=== PATIENT | male | born 1940 | race African-American/Black ===

== ENCOUNTER 2019-04-09 20:20 | Emergency (ER) | payer MEDICARE, MEDICAID ==
[~2019-04-09] VITALS: Ht 177.8 cm; Wt 86.0 kg
[2019-04-09 20:26] VITALS: BP 153/88
[2019-04-09] MEDS ORDERED: METF500T17 PO (20:49)
--- NOTE | 2019-04-09 20:49 | NUR ---
BIB EMS, per [facility] pt fell and hit face to ground, possible mechanical GLF, pt found by EMS sitting in chair, not answering questions, initally refusing interventions, in ambulance pt more "lively" report neck pain, c-collar applied retail sales director, pt admits to drinking alcohol today, strong ETOH smell on arrival. c-spine precautions remain in place, awaiting ct, pt on cont cardiac and pulse ox monitoring. at bedside
[2019-04-09] MEDS ORDERED: LIDOCAINE-MPF 1%, 5ML INFIL ONE (21:00)
[2019-04-09] MEDS ORDERED: LIDOCAINE-MPF 1%, 5ML ONE ×2 (21:07→21:08)
[2019-04-09 21:17] LABS: BASOPHILS # (AUTO) 0.03 x10^3/uL (0-0.1); BASOPHILS % (AUTO) 1 % (0-1); EOSINOPHILS # (AUTO) 0.54 x10^3/uL (0-0.4); EOSINOPHILS % (AUTO) 9 % (1-7); LYMPHOCYTES # (AUTO) 2.08 x10^3/uL (1-3.4); LYMPHOCYTES % (AUTO) 34 % (22-44); MD NO; MEAN CORPUSCULAR HEMOGLOBIN 32.6 pg (27.5-34.5); MEAN CORPUSCULAR VOLUME 95.8 fL (81-97); MEAN PLATELET VOLUME 6.6 fL (7.4-10.4); MONOCYTES # (AUTO) 0.46 x10^3/uL (0.2-0.8); MONOCYTES % (AUTO) 8 % (2-9); NEUTROPHILS # (AUTO) 2.93 x10^3/uL (1.8-6.8); NEUTROPHILS % (AUTO) 49 % (42-75); PLATELET COUNT 214 x10^3/uL (130-400); RED BLOOD COUNT 4.35 x10^6/uL (4.38-5.82); RED CELL DISTRIBUTION WIDTH 13.5 % (9.4-14.8)
[2019-04-09 21:29] LABS: ALANINE AMINOTRANSFERASE 25 U/L (12-78); ALBUMIN 3.8 g/dL (3.4-5.0); ANION GAP 9 mmol/L (5-15); CALCIUM 8.2 mg/dL (8.5-10.1); CHLORIDE 108 mmol/L (98-107)
--- NOTE | 2019-04-09 21:30 | NUR ---
Pt redirected back to [facility] after trying to get up, "I want to put my feet on the ground" Pt advised he is to stay on [place] siding due to etoh and unsteady gait, pt given urinal, at bedside to assist with urinal. Pt remains on [place] siding with side rails up
[2019-04-09 21:31] LABS: ALKALINE PHOSPHATASE 44 U/L (45-117); BILIRUBIN,TOTAL 1.1 mg/dL (0.2-1.0); TOTAL PROTEIN 7.4 g/dL (6.4-8.2)
--- NOTE | 2019-04-09 22:01 | NUR ---
PA at bedside for sutures.
[2019-04-09] MEDS ORDERED: DIPH,PERTUSS(ACELL),TET VAC/PF 0.5 ML IM-VACC ONE ×2 (22:27→22:30)
--- NOTE | 2019-04-09 22:35 | NUR ---
Chart up for DC, pt states "I just want to lay here for a few" pt has slurred speech and was unsteady on feet when attempting to get up to urinate earlier in visit. Per PA, pt ok to MTF until able to walk with steady gait. remains at bedside, pt agrees to stay in bed until dc'd by RN
--- NOTE | 2019-04-09 22:51 | NUR ---
Report from ravi wilson. Awaiting amb w/ steady gait for d/c.
--- NOTE | 2019-04-09 22:51 | NUR ---
Pt refusing bacitracin for wounds.
== END 2019-04-09 23:50 | disposition home or self-care (01) ==
LOC: ED 21:18
DX: S01.511A Laceration without foreign body of lip, initial encounter (principal); S09.90XA Unspecified injury of head, initial encounter; F10.10 Alcohol abuse, uncomplicated; F17.200 Nicotine dependence, unspecified, uncomplicated; W18.30XA Fall on same level, unspecified, initial encounter; Y93.89 Activity, other specified; Y92.009 Unspecified place in unspecified non-institutional (private) residence as the place of occurrence of the external cause; Y99.8 Other external cause status
CPT/HCPCS: 13152; 36415; 70450; 70486; 72125; 80053; 80307; 85025; 90715; 93005; 99284; 99285